=== PATIENT | male | born 1970 | race Caucasian/White ===

== ENCOUNTER 2016-03-19 23:08 | Emergency (ER) | payer OTHER ==
[2016-03-19 23:13] VITALS: RESP 16
[2016-03-19] MEDS ORDERED: NS 1,000 ML IV ONE (23:37)
--- NOTE | 2016-03-19 23:41 | EDPHY ---
HPI/HX/ROS/PE/MDM Narrative: Chief complaint: Surgical site bleeding HPI: 46-year-old male who is status post abdominal plasty at [facility] today by Dr. Cao. Patient is presenting complaining of having had 2 syncopal episodes while urinating today. He has also had over 200 mL out of his GEMINI drains which is 100 more then they were told to expect. No chest pain or shortness of breath. No fevers or chills. No nausea or vomiting. Pain is controlled. They spoke with the on-call plastic surgeon who told them was likely secondary to the IV fluids he received today. ROS: 10 point Review of Systems is negative except as noted in the HPI. Physical exam: Gen: Awake, Alert, No Distress HEENT: Nose: no rhinorrhea Eyes: PERRLA, EOMI Mouth: Moist mucosa Neck: Supple, no JVD Chest: nontender, lungs clear to auscultation Heart: S1, S2 normal, no murmur Abd: There is a blood-soaked dressing in place. This was taken down. Incisions are intact. There is a small amount of oozing. There is no purulence or erythema. Has mild diffuse tenderness consistent with his recent surgery. Back: no CVA tenderness, no midline tenderness Ext: no edema, non-tender Skin: no rash Neuro: CN II-XII intact, Sensation grossly intact, Strength 5/5 in bilateral upper and lower extremities ED Course: 46-year-old male status post abdominal plasty 2 episodes of syncope which I think are related to his narcotic analgesia. He is having serosanguineous discharge from his [place]ger-Biggs drains. His wounds are intact and do not show significant using. His hematocrit is 40 here. He is not tachycardic or hypotensive. He is ambulated in the department without any difficulty. He would like to go home. I am in agreement to discharge him with a plan that he follow up with his plastic surgeon for re-evaluation tomorrow. Return to the emergency department for any concerns. - Data Points Laboratory Results: Laboratory Results 03/19/16 23:40 03/19/16 23:40 03/19/16 23:40 WBC 11.10 H 10^3/uL (3.80-9.50) RBC 4.06 L 10^6/uL (4.40-6.38) Hgb 14.2 g/dL (13.7-17.5) Hct 40.6 % (40.0-51.0) MCV 100.0 H fL (81.5-99.8) MCH 35.0 H pg (27.9-34.1) MCHC 35.0 g/dL (32.4-36.7) RDW 11.9 % (11.5-15.2) Plt Count 180 10^3/uL (150-400) MPV 9.7 fL (8.7-11.7) Neut % (Auto) 89.7 H % (39.3-74.2) Lymph % (Auto) 5.3 L % (15.0-45.0) [place] % (Auto) 4.4 L % (4.5-13.0) Eos % (Auto) 0.0 L % (0.6-7.6) Baso % (Auto) 0.1 L % (0.3-1.7) Nucleat RBC Rel Count 0.0 % (0.0-0.2) Absolute Neuts (auto) 9.95 H 10^3/uL (1.70-6.50) Absolute Lymphs (auto) 0.59 L 10^3/uL (1.00-3.00) Absolute Monos (auto) 0.49 10^3/uL (0.30-0.80) Absolute Eos (auto) 0.00 L 10^3/uL (0.03-0.40) Absolute Basos (auto) 0.01 L 10^3/uL (0.02-0.10) Absolute Nucleated RBC 0.00 10^3/uL (0-0.01) Immature Gran % 0.5 % (0.0-1.1) Immature Gran # 0.06 10^3/uL (0.00-0.10) Sodium 134 mEq/L (134-144) Potassium 4.8 mEq/L (3.5-5.2) Chloride 102 mEq/L (97-110) Carbon Dioxide 27 mEq/l (22-31) Anion Gap 5 mEq/L (8-16) BUN 18 mg/dL (7-23) Creatinine 0.7 mg/dL (0.7-1.3) Estimated GFR > 60 Glucose 152 H mg/dL (70-100) Calcium 8.6 mg/dL (8.5-10.4) Medications Given: Discontinued Medications Sodium Chloride (Ns) 1,000 mls @ 0 mls/hr IV ONCE ONE PRN Reason: Wide Open Stop: 03/19/16 23:38 Last Admin: 03/20/16 00:00 Dose: 1,000 mls General Time Seen by Provider: 03/19/16 23:29 Initial Vital Signs: Initial Vital Signs Heart Rate 73 03/19/16 23:11 Respiratory Rate 16 03/19/16 23:11 Blood Pressure 138/95 H 03/19/16 23:11 O2 Sat (%) 96 03/19/16 23:11 O2 Delivery Mode Room Air Allergies/Adverse Reactions: No Known Allergies Allergy (Unverified 12/05/15 16:17) Departure - Departure Disposition: Home, Routine, Self-Care Clinical Impression: Post-op bleeding Condition: Good Instructions: Postoperative Bleeding (ED) Additional Instructions: Follow up with your surgeon later today for re-evaluation. Return emergency depart for increasing lightheadedness syncope, chest pain, shortness of breath, or any other concerns. Referrals: Yared Roberts, [Primary Care Provider] - As per Instructions
[2016-03-19 23:50] LABS: % IMMATURE GRANULYOCYTES 0.5 % (0.0-1.1); ABSOLUTE IMMATURE GRANULOCYTES 0.06 10^3/uL (0.00-0.10); ADD DIFF? NO; ADD MORPH? NO; ADD SCAN? NO; ATYPICAL LYMPHOCYTE FLAG 0 (0-99); FRAGMENT RBC FLAG 0 (0-99); HEMATOCRIT 40.6 % (40.0-51.0); HEMOGLOBIN 14.2 g/dL (13.7-17.5); LEFT SHIFT FLG 0 (0-99); LIPEMIA HEMOLYSIS FLAG 90 (0-99); MEAN PLATELET VOLUME 9.7 fL (8.7-11.7); PLATELET CLUMPS FLAG 0 (0-99); PLATELET COUNT 180 10^3/uL (150-400); RED BLOOD CELL COUNT 4.06 10^6/uL (4.40-6.38); RED CELL DISTRIBUTION WIDTH 11.9 % (11.5-15.2)
[2016-03-20 00:24] LABS: ANION GAP 5 mEq/L (8-16); CALCIUM 8.6 mg/dL (8.5-10.4); CARBON DIOXIDE 27 mEq/l (22-31); CHLORIDE 102 mEq/L (97-110); CREATININE 0.7 mg/dL (0.7-1.3); GLOMERULAR FILTRATION RATE > 60; GLUCOSE 152 mg/dL (70-100); POTASSIUM 4.8 mEq/L (3.5-5.2); SODIUM 134 mEq/L (134-144)
[2016-03-20 01:56] VITALS: BP 131/72; PULSE 76; TEMP 98.1; O2SAT 97
== END 2016-03-20 01:56 | disposition home or self-care (01) ==
DX: K91.840 Postprocedural hemorrhage of a digestive system organ or structure following a digestive system procedure (principal); Y82.8 Other medical devices associated with adverse incidents

== ENCOUNTER → 2018-04-24 | Outpatient (CLI) | payer OTHER | LOC: FIMAGING 14:31 | PROVIDERS: ATTEND Family Medicine | DX: E78.5 Hyperlipidemia, unspecified (principal); I10 Essential (primary) hypertension; Z82.49 Family history of ischemic heart disease and other diseases of the circulatory system ==